=== PATIENT | female | born 2000 | race Caucasian/White ===

== ENCOUNTER 2023-10-19 05:20 | Emergency (ER) | payer OTHER, SELFPAY ==
[2023-10-19 05:32] VITALS: BP 126/88
--- NOTE | 2023-10-19 06:30 | ED.GENMED ---
History of Present Illness
General
Chief Complaint: Abdominal Symptoms
Source: patient
Exam Limitations: none
Time Seen by Provider: 10/19/23 06:12
Nursing documentation reviewed up to this point in time: agreed with
Travel History
Have you had any contact with someone who has COVID-19?: No
Do you have any symptoms of coronavirus? Fever > 100 degrees, chills, cough, shortness of breath, sore throat, loss of taste or smell, muscle aches, or headache?: No
History of Present Illness
History of Present Illness:
23-year-old female presents with headache nausea vomiting to her 23 Friday evening was celebrating with some alcohol with her boyfriend felt hung over yesterday did not eat very much felt nauseous today vomited x 1 mild upper abdominal pain denies
no fevers
Past History
Past History
ED Past Medical History: Psychiatric (depression, anxiety)
ED Past Surgical History: None
Social History
Tobacco: Non-smoker
Alcohol: Occasional
Drug: None
Personal: Single
Living: with family
Review of Systems
Review of Systems
All Other Systems: Not applicable
Constitutional: Denies fever or fatigue
EENT: Reports no symptoms
Respiratory: Denies trouble breathing
Cardiac: Denies palpitations
ABD/GI: Reports abdominal pain, nausea and vomiting
: Reports no symptoms
Musculoskeletal: Reports no symptoms
Skin: Reports no symptoms
Phy Exam
Physical Exam
Physical Exam:
Physical Exam
General: no apparent distress, not acutely ill
Neck: Lips are moist no jaundice
Heart: s1/s2 regular rate and rhythm, no murmur. equal radial pulses.
Lungs: no acute respiratory distress. clear bilaterally
Abdomen: Mild mid upper abdominal tenderness
Neuro: alert and oriented. no focal neurological deficits
Skin: no rash
Psychiatric: well kept. interactive and cooperative
Extremities: no edema.
Course
Orders/Labs/Results
Orders:
Orders
10/19/23 06:28
Ondansetron Orally Disint [Zofran Odt (Orally Disintegrating)] 4 mg PO NOW STA
Vital Signs
Initial and Last Documented VS:
Initial Vital Signs
Temp Pulse Resp BP Pulse Ox
97.8 F 88 22 126/88 98
10/19/23 05:32 10/19/23 05:32 10/19/23 05:32 10/19/23 05:32 10/19/23 05:32
Last Documented Vital Signs
Temp Pulse Resp BP Pulse Ox
97.8 F 88 22 126/88 98
10/19/23 05:32 10/19/23 05:32 10/19/23 05:32 10/19/23 05:32 10/19/23 05:58
MDM/Problems Addressed
Differential Diagnosis Includes:
Gastritis dehydration doubt pancreatitis per viscus
MDM/Problems Addressed:
Nausea vomiting
*Pulse Oximetry
Patient hypoxic: no
*Critical Care Note
Total Time (30-74mins, 75-104mins- exclusive of procedures): Not Applicable
Update Note
Update Note:
Well-appearing optically dehydrated plan will be Zofran oral rehydration therapy serial abdominal exams
Update patient feeling better
ED Attending Note
-
Portions of this chart may have been created with voice recognition software.� Occasional wrong word or��sound alike� substitutions may have occurred due to the inherent limitations of voice recognition software.
Discharge Plan
Departure
Patient Disposition: Home (Routine Discharge)
Date of Disposition: 10/19/23
Time of Disposition: 07:15
Patient with high blood pressure during this ER visit?: No
Condition: Good
Covid-19: Not Applicable
Discharge Problem:
Nausea & vomiting
Instructions: Dehydration, Adult (DC), Nausea and Vomiting, Adult (DC)
Prescriptions:
New
ondansetron 4 mg tablet,disintegrating
4 mg PO Q8H PRN (Reason: nausea and vomiting) Qty: 10 0RF
No Action
ondansetron 4 MG tablet,disintegrating
4 mg PO TIDPRN PRN (Reason: nausea/vomiting) Qty: 10 0RF
Referrals:
NONE,* [Family Provider] -
Interventions
Interventions:
*Risk Screen - Suicide Last Done: 10/19/23 05:32
*General Assessment Last Done: 10/19/23 05:58
*Neglect/Abuse Screening Last Done: 10/19/23 05:32
ED- Fall Risk Assessment Last Done: 10/19/23 05:58
*ED COVID-19 Vaccine History Last Done: 10/19/23 05:58
GS-Pucqdf-Ittwzsgkrj Assessment Last Done: 10/19/23 05:58
ED- Cardiac Assessment Last Done: 10/19/23 05:58
ED- Neurological Assessment Last Done: 10/19/23 05:58
ED- Pulmonary Assessment Last Done: 10/19/23 05:58
Discharge Date and Time
Print Language: OMANI
[2023-10-19] MEDS: ZOFRAN ODT (ORALLY DISINTEGRATING) 4 MG PO (06:43)
== END 2023-10-19 07:25 | disposition home or self-care (01) ==
LOC: EMR 05:20
PROVIDERS: EMERGENCY PHYSICIAN Emergency Medicine
DX: R11.2 Nausea with vomiting, unspecified (principal); R51.9 Headache, unspecified; R10.10 Upper abdominal pain, unspecified; E86.0 Dehydration; F41.9 Anxiety disorder, unspecified; F32.A Depression, unspecified; Z86.16 Personal history of COVID-19
CPT/HCPCS: 99283

== ENCOUNTER 2024-06-07 18:09 | Emergency (ER) | payer OTHER, SELFPAY ==
[2024-06-07 18:11] VITALS: BP 136/98
--- NOTE | 2024-06-07 18:14 | ED.GENMED ---
ED Provider Triage
<Casper Espinoza PA-C - Last Filed: 06/07/24 18:15>
-
Patient seen by provider in Triage?: Seen in Triage
Attestation: A medical screening examination has been initiated by a qualified medical provider. Based on the assessment performed at this time, it has been determined that an emergent medical condition may exist and the patient has been informed
that further medical evaluation and possible additional diagnostic testing may be needed.
HPI: Healthy 23-year-old female presents for severe headache over the past 5 days with associated nausea and occasional vomiting. Prior to the symptoms she had respiratory illness including fever. No current fever. No prior history of headaches.
She does not describe sudden onset headache. She looks well at triage with stable vital signs
CT head labs test COVID flu test ordered
GENERAL: Alert , in no apparent distress
EYE: No visual abnormalities.
NECK: Trachea midline
ENT: No visible abnormalities.
LUNGS: No acute respiratory distress
NEUROLOGICAL: Alert and oriented
SKIN: Skin intact. No visible changes.
MUSCULOSKELETAL: Moving extremities normally
PSYCH: Normal and appropriate interaction.
This is a medical evaluation conducted in person to initiate diagnostic evaluation and provide initial therapeutics. Please see further documentation by the treating clinician.
History of Present Illness
<Casper Espinoza PA-C - Last Filed: 06/07/24 18:15>
General
Chief Complaint: Headache
Time Seen by Provider: 06/07/24 20:57
<Hayley Taylor NP - Last Filed: 06/07/24 22:51>
General
Source: patient
Exam Limitations: none
Nursing documentation reviewed up to this point in time: agreed with
History of Present Illness
History of Present Illness:
Patient to ED with complaint of head pressure x 5 days. Denies fever/chills. +nausea. Brought to ED by friend for eval.
Past History
<Casper Espinoza PA-C - Last Filed: 06/07/24 18:15>
Past History
ED Past Medical History: Psychiatric (depression, anxiety)
ED Past Surgical History: None
Social History
Tobacco: Non-smoker
Alcohol: Occasional
Drug: None
Personal: Single
Living: with family
Review of Systems
<Hayley Taylor NP - Last Filed: 06/07/24 22:51>
Review of Systems
Allergies reviewed?: Yes
All Other Systems: ROS reviewed and negative except as documented in HPI and ROS
Constitutional: Reports no symptoms
EENT: Reports other (sinus pressure)
Respiratory: Reports no symptoms
Cardiac: Reports no symptoms
ABD/GI: Reports nausea
: Reports no symptoms
Musculoskeletal: Reports no symptoms
Skin: Reports no symptoms
Neurological: Reports headache
Psychiatric: Reports no symptoms
Phy Exam
<Hayley Taylor NP - Last Filed: 06/07/24 22:51>
General Physical Exam
General Presentation: well appearing and mild distress
General age: appears stated age
General Skin: warm and dry
General Habitus: normal
General Mental: alert
ENT Exam
ENT Exam: EOMI, TM's normal, pharynx normal, neck supple and normocephalic
Eye Exam
Eye Exam: PERRL, EOMI, conjunctiva normal and globe normal
Cardiovascular Exam
Cardiovascular Exam: regular rate/rhythm and no edema
Neurological Exam
Neurological Exam: alert, oriented x3, CN II-XII intact, no motor deficits, no sensory deficits and speech normal
Sindy Coma Scale
Eye Opening: Spontaneous
Verbal Response: Oriented
Motor Response: Obeys Commands
GCS Total Score: 15
Mental
Mental Status: oriented to person, oriented to place, oriented to time and usual mental status
Cranial
Cranial Nerves: normal
EOM (CN3/4/6): intact
Motor
Seizure Activity: none, active focal seizure, active grand mal seizure, postictal and other
Gait: normal
Tremors: none
Right upper extremity: 4
Right lower extremity: 4
Left upper extremity: 4
Left lower extremity: 4
Bilateral upper extremities: 4
Bilateral lower extremities: 4
Sensory
Sensory Exam: intact
Cerebellar
Cerebellar Function: normal finger to nose, normal heel to zhou and normal Romberg test
Musculoskeletal Exam
Musculoskeletal Exam: full ROM and neuro vasc intact
Skin Exam
Skin Exam: normal color, warm/dry and no rash
Psychiatric Exam
Psychiatric Exam: normal mood/affect
Course
<Casper Espinoza PA-C - Last Filed: 06/07/24 18:15>
Orders/Labs/Results
Orders:
Orders
06/07/24 18:13
CT Head W/o Iv Contrast Urgent
Comment:
Reason For Exam: headache
Test Result ONCE
06/07/24 18:28
COVID-19 Antigen Urgent
Source: Nasal Swab
Complete Blood Count/With Diff Urgent
Comprehensive Metabolic Panel Urgent
HCG, Serum Qualitative Screen Urgent
Influenza A+B Rapid Molecular Urgent
JORGE Source: Nasal Swab
Specimen Description:
06/07/24 19:55
Ondansetron Orally Disint [Zofran Odt (Orally Disintegrating)] 4 mg .ROUTE .STK-MED ONE
Ondansetron Orally Disint [Zofran Odt (Orally Disintegrating)] 4 mg PO NOW STA
06/07/24 22:39
Ketorolac [Toradol] 30 mg IV NOW STA
Ondansetron Orally Disint [Zofran Odt (Orally Disintegrating)] 4 mg PO NOW STA
Abnormal Lab Results
06/07/24
18:28
WBC 4.2 L 10^3/uL
(4.8-10.8)
RBC 3.93 L 10^6/uL
(4.20-5.40)
Hgb 11.3 L g/dL
(12.0-16.0)
Hct 33.3 L %
(37.0-47.0)
Absolute Lymphs (auto) 0.9 L 10^3/uL
(1.2-3.4)
Sodium 131 L mmol/L
(135-145)
Creatinine 0.5 L mg/dL
(0.6-1.0)
06/07/24 18:28
06/07/24 18:28
Vital Signs
Initial and Last Documented VS:
Initial Vital Signs
Temp Pulse Resp BP Pulse Ox
98.6 F 98 16 136/98 100
06/07/24 18:11 06/07/24 18:11 06/07/24 18:11 06/07/24 18:11 06/07/24 18:11
Last Documented Vital Signs
Temp Pulse Resp BP Pulse Ox
97.9 F 94 16 136/87 100
06/07/24 19:35 06/07/24 19:35 06/07/24 18:11 06/07/24 19:35 06/07/24 19:35
<Hayley Taylor NP - Last Filed: 06/07/24 22:51>
Orders/Labs/Results
Orders:
Orders
06/07/24 18:13
CT Head W/o Iv Contrast Urgent
Comment:
Reason For Exam: headache
Test Result ONCE
06/07/24 18:28
COVID-19 Antigen Urgent
Source: Nasal Swab
Complete Blood Count/With Diff Urgent
Comprehensive Metabolic Panel Urgent
HCG, Serum Qualitative Screen Urgent
Influenza A+B Rapid Molecular Urgent
JORGE Source: Nasal Swab
Specimen Description:
06/07/24 19:55
Ondansetron Orally Disint [Zofran Odt (Orally Disintegrating)] 4 mg .ROUTE .STK-MED ONE
Ondansetron Orally Disint [Zofran Odt (Orally Disintegrating)] 4 mg PO NOW STA
06/07/24 22:39
Ketorolac [Toradol] 30 mg IV NOW STA
Ondansetron Orally Disint [Zofran Odt (Orally Disintegrating)] 4 mg PO NOW STA
Abnormal Lab Results
06/07/24
18:28
WBC 4.2 L 10^3/uL
(4.8-10.8)
RBC 3.93 L 10^6/uL
(4.20-5.40)
Hgb 11.3 L g/dL
(12.0-16.0)
Hct 33.3 L %
(37.0-47.0)
Absolute Lymphs (auto) 0.9 L 10^3/uL
(1.2-3.4)
Sodium 131 L mmol/L
(135-145)
Creatinine 0.5 L mg/dL
(0.6-1.0)
06/07/24 18:28
06/07/24 18:28
Vital Signs
Initial and Last Documented VS:
Initial Vital Signs
Temp Pulse Resp BP Pulse Ox
98.6 F 98 16 136/98 100
06/07/24 18:11 06/07/24 18:11 06/07/24 18:11 06/07/24 18:11 06/07/24 18:11
Last Documented Vital Signs
Temp Pulse Resp BP Pulse Ox
97.9 F 94 16 136/87 100
06/07/24 19:35 06/07/24 19:35 06/07/24 18:11 06/07/24 19:35 06/07/24 19:35
<Hayley Taylor NP - Last Filed: 06/07/24 22:51>
*Radiology
Radiology exam reviewed: radiology read reviewed
*Pulse Oximetry
Patient hypoxic: no
ED Attending Note
<Casper Espinoza PA-C - Last Filed: 06/07/24 18:15>
-
Portions of this chart may have been created with voice recognition software.� Occasional wrong word or��sound alike� substitutions may have occurred due to the inherent limitations of voice recognition software.
Discharge Plan
Departure
Patient Disposition: Home (Routine Discharge)
Date of Disposition: 06/07/24
Time of Disposition: 22:40
Patient with high blood pressure during this ER visit?: No
Condition: Good
Covid-19: Not Applicable
Discharge Problem:
Headache
Instructions: Headache, Adult (DC)
Prescriptions:
New
azithromycin [Zithromax] 250 mg tablet
250 mg PO DAILY Qty: 6 0RF
Rx Instructions:
Take 2 tablets on day 1, then 1 tablet daily for 4 days.
ondansetron 4 mg tablet,disintegrating
4 mg PO Q8H PRN (Reason: nausea and vomiting) 4 Days Qty: 12 0RF
No Action
ondansetron 4 MG tablet,disintegrating
4 mg PO TIDPRN PRN (Reason: nausea/vomiting) Qty: 10 0RF
ondansetron 4 mg tablet,disintegrating
4 mg PO Q8H PRN (Reason: nausea and vomiting) Qty: 10 0RF
Referrals:
[facility] [Outside]
NONE,* [Family Provider] -
Stand Alone Forms: Return to Work
Activity Restrictions/Additional Instructions:
Return to the emergency department immediately for any changes in/worsening of your symptoms
Interventions
Interventions:
*Risk Screen - Suicide Last Done: 06/07/24 18:11
*General Assessment Last Done: 06/07/24 18:11
*Neglect/Abuse Screening Last Done: 06/07/24 18:11
*ED COVID-19 Vaccine History Last Done: 06/07/24 18:11
ED- Neurological Assessment Last Done: 06/07/24 20:25
Discharge Date and Time
Print Language: EGYPTIAN
[2024-06-07 18:36] LABS: % Basophils 0.2 % (0-2); % Immature Granulocytes 0.2 % (0-0.5); % Lymphocytes 21.5 % (20.5-51.1); % Monocytes 7.8 % (1.7-9.3); % Neutrophils 70.3 % (42.2-75.2); Absolute Lymphocytes 0.9 10^3/uL (1.2-3.4); Absolute Monocytes 0.3 10^3/uL (0.1-0.6); Hematocrit 33.3 % (37.0-47.0); Hemoglobin 11.3 g/dL (12.0-16.0); Mean Corp Hgb Conc. 33.9 g/dL (33.0-37.0); Mean Corpuscular Hgb 28.8 pg (27.0-31.0); Mean Corpuscular Volume 84.7 fL (81.0-99.0); Mean Platelet Volume 10.2 fL (7.4-10.4); Nucleated Red Blood Cells % 0 %; Platelet Count 210 10^3/uL (130-400); Red Blood Cell Count 3.93 10^6/uL (4.20-5.40); Red Cell Dist. Width 12.7 % (11.5-14.5); White Blood Cell Count 4.2 10^3/uL (4.8-10.8)
[2024-06-07 18:51] LABS: HCG, Serum Qualitative Screen Negative
[2024-06-07 18:54] LABS: ALT (SGPT) 21 U/L (0-35); AST (SGOT) 25 U/L (14-36); Albumin 4.9 g/dl (3.5-5.0); Alkaline Phosphatase 69 U/L (38-126); Blood Urea Nitrogen 9 mg/dl (7-17); COVID-19 Antigen Negative (Negative); Calcium 9.6 mg/dl (8.4-10.2); Carbon Dioxide 25 mmol/L (22-30); Chloride 98 mmol/L (98-107); Glucose 98 mg/dl (70-99); Potassium 3.9 mmol/L (3.5-5.1); Sodium 131 mmol/L (135-145); Total Bilirubin 0.5 mg/dl (0.2-1.3); Total Protein 7.7 g/dl (6.3-8.2); eGFR > 60.00
[2024-06-07 19:35] VITALS: BP 136/87
[2024-06-07] MEDS: ZOFRAN ODT (ORALLY DISINTEGRATING) 4 MG PO ×2 (19:56→23:12)
[2024-06-07] MEDS: TORADOL 30 MG IM (23:12)
[2024-06-07 23:36] VITALS: BP 132/83
== END 2024-06-07 23:36 | disposition home or self-care (01) ==
LOC: EMR 18:09
PROVIDERS: Physician Assistant; EMERGENCY PHYSICIAN Emergency Medicine
DX: R51.9 Headache, unspecified (principal); R11.2 Nausea with vomiting, unspecified
CPT/HCPCS: 96372; 99284; 70450; 80053; 84703; 85025; 87502; 87811

== ENCOUNTER 2024-06-08 18:19 | Emergency (ER) | payer OTHER, SELFPAY ==
[2024-06-08 18:20] VITALS: BP 100/75
--- NOTE | 2024-06-08 19:36 | ED.GENMED ---
History of Present Illness
General
Chief Complaint: Headache
Time Seen by Provider: 06/08/24 19:35
History of Present Illness
History of Present Illness:
TIME OF INITIAL ENCOUNTER: 7:40 PM
HPI: The patient presents with ongoing headache. This is associated with photophobia and nausea. She was seen here yesterday for the same and reports only minimal improvement after Toradol was given. She was encouraged to come back here if her
symptoms did not improve she denies any fevers but think she may have had chills. There has been no trauma. She states that her sister gets headaches.
EXAM:
GENERAL: Well appearing but appears somewhat uncomfortable and photophobic
HEENT: Moist oral mucosa
CARDIOVASCULAR: No murmurs, normal heart rate, regular rhythm, No chest wall tenderness
PULMONARY: No respiratory distress, breath sounds are clear and equal
ABDOMEN: Soft with no peritoneal signs, no tenderness
NEUROLOGIC: Excellent strength all extremities, no coordination deficits
PSYCHIATRIC: Appropriate mental status, normal insight and judgement
EXTREMITIES: Nontender, no edema, moves all extremities equally
SKIN: No rash, no lesions
NUMBER AND COMPLEXITY OF PROBLEMS ADDRESSED AT THE ENCOUNTER
� Chronic conditions affecting care: Has had SVT, anxiety/depression
� Acute Exacerbation and/or Progression of Chronic Illness: This is an acute problem
� Differential Diagnosis includes: Migraine headache, no evidence of mass or hemorrhage based on yesterday's CT head, tension headache
AMOUNT AND/OR COMPLEXITY OF DATA TO BE REVIEWED AND ANALYZED
� I performed an independent evaluation of and my interpretation is:
EKG:
CT:
X-rays:
Laboratory Studies:
Other:
� Review of other/old records: The patient was seen here yesterday for similar symptoms. At that time the patient had a CAT scan of the brain which was unremarkable. Flu and COVID test were negative yesterday. White count was
slightly low at 4.2
� Clinical information was obtained by an independent historian: I spoke to significant other at bedside
� Prescriptions/Medications Considered but not given:
� Further testing considered but not performed:
RISK OF COMPLICATIONS AND/OR MORBIDITY OR MORTALITY OF PATIENT MANAGEMENT
� Social determinants of health affecting care: Lives at home
� Discussion with other providers: Discussed case with Dr. Martin at 8:50 PM�recommended trying steroids and Maxalt
� Escalation of care including admission/observation vs risk of discharge considered: The patient appears uncomfortable and has several days of photophobia and nausea. Nausea did improve after she took Zofran today. Will try
Reglan, Benadryl, fluids, and another dose of Toradol.
ANY OTHER UPDATES:
8:45 PM: The patient was resting comfortably, sleeping. She overall appears more comfortable.
10 PM: I reassessed patient needs to improve after Maxalt. She was also given IV dose of steroids. Will give prescription for Maxalt as well as short course of prednisone
Past History
Past History
ED Past Medical History: Psychiatric (depression, anxiety)
ED Past Surgical History: None
Social History
Tobacco: Non-smoker
Alcohol: Occasional
Drug: None
Personal: Single
Living: with family
Phy Exam
Physical Exam
Physical Exam:
See HPI
Course
Orders/Labs/Results
Orders:
Orders
06/08/24 19:48
0.9% Sodium Chloride 1000 ml [Nss] 1,000 ml IV BOLUS
Diphenhydramine [Benadryl] 25 mg IV NOW STA
Ketorolac [Toradol] 15 mg IV NOW STA
Metoclopramide [Reglan] 10 mg IV NOW STA
06/08/24 20:52
Rizatriptan Orally Disintegrat [Maxalt Exercise Specialist (Orally Disintegrating)] 10 mg PO ONCE ONE
06/08/24 21:14
Dexamethasone Sod Phosphate [Decadron] 6 mg IV NOW STA
Vital Signs
Initial and Last Documented VS:
Initial Vital Signs
Temp Pulse Resp BP Pulse Ox
36.7 C 89 20 100/75 97
06/08/24 18:20 06/08/24 18:20 06/08/24 18:20 06/08/24 18:20 06/08/24 18:20
Last Documented Vital Signs
Temp Pulse Resp BP Pulse Ox
36.7 C 89 20 100/75 97
06/08/24 18:20 06/08/24 18:20 06/08/24 18:20 06/08/24 18:20 06/08/24 18:20
*Critical Care Note
Total Time (30-74mins, 75-104mins- exclusive of procedures): Not Applicable
ED Attending Note
-
Portions of this chart may have been created with voice recognition software.� Occasional wrong word or��sound alike� substitutions may have occurred due to the inherent limitations of voice recognition software.
Discharge Plan
Departure
Patient Disposition: Home (Routine Discharge)
Date of Disposition: 06/08/24
Time of Disposition: 21:54
Patient with high blood pressure during this ER visit?: No
Discharge Problem:
Migraine
Instructions: Migraines (DC)
Prescriptions:
New
rizatriptan [Maxalt-METALSMITH] 10 mg tablet,disintegrating
10 mg PO DAILY PRN (Reason: migraine headache) Qty: 10 0RF
prednisone 50 mg tablet
50 mg PO DAILY Qty: 4 0RF
No Action
ondansetron 4 MG tablet,disintegrating
4 mg PO TIDPRN PRN (Reason: nausea/vomiting) Qty: 10 0RF
ondansetron 4 mg tablet,disintegrating
4 mg PO Q8H PRN (Reason: nausea and vomiting) Qty: 10 0RF
azithromycin [Zithromax] 250 mg tablet
250 mg PO DAILY Qty: 6 0RF
Rx Instructions:
Take 2 tablets on day 1, then 1 tablet daily for 4 days.
ondansetron 4 mg tablet,disintegrating
4 mg PO Q8H PRN (Reason: nausea and vomiting) 4 Days Qty: 12 0RF
Referrals:
UNKNOWN - PT DOES,NOT KNOW [Family Provider] -
Activity Restrictions/Additional Instructions:
Tonight, we gave you Reglan with Benadryl, IV fluids, Toradol, and we also gave you an IV dose of steroid called Decadron. I notified one of the neurologist. He recommended we try Maxalt. I am sending a prescription for Maxalt as well as a short
course of steroids. We did give you a dose of steroids tonight; I will leave it up to you if you want to resume the steroids but may help to prevent the symptoms from recurring. Follow-up your primary care doctor.
Interventions
Interventions:
*Risk Screen - Suicide Last Done: 06/08/24 18:20
*General Assessment Last Done: 06/08/24 18:20
*Neglect/Abuse Screening Last Done: 06/08/24 18:20
*ED COVID-19 Vaccine History Last Done: 06/08/24 20:21
ED- Neurological Assessment Last Done: 06/08/24 20:21
Discharge Date and Time
Print Language: BRITISH
[2024-06-08] MEDS: NSS 1000 IV (20:15)
[2024-06-08] MEDS: BENADRYL 25 MG IV (20:16)
[2024-06-08] MEDS: REGLAN 10 MG IV (20:16)
[2024-06-08] MEDS: TORADOL 15 MG IV (20:16)
[2024-06-08] MEDS: MAXALT MLT (ORALLY DISINTEGRATING) 10 MG PO (21:11)
[2024-06-08] MEDS: DECADRON 6 MG IV (21:35)
== END 2024-06-08 22:23 | disposition home or self-care (01) ==
LOC: EMR 18:19
PROVIDERS: EMERGENCY PHYSICIAN Emergency Medicine
DX: G43.909 Migraine, unspecified, not intractable, without status migrainosus (principal)
CPT/HCPCS: 99284; 96374; 96375 ×3; 96361